=== PATIENT | female | born 1970 | race Caucasian/White ===

== ENCOUNTER 2018-11-22 10:39 | Outpatient (CLI) | payer BC | END 2018-11-22 10:40 | disposition home or self-care (01) | LOC: BICMAMMO 10:39 | PROVIDERS: ATTEND Family Medicine | DX: Z12.31 Encounter for screening mammogram for malignant neoplasm of breast (principal); Z80.3 Family history of malignant neoplasm of breast | CPT/HCPCS: 77063; 77067 ==

== ENCOUNTER 2019-07-04 12:39 | Outpatient (CLI) | payer BC ==
--- NOTE | 2019-07-04 17:32 | MRI ---
MRI Cervical Spine WO Con History: Anika taylor [id number] spondylosis Comparison: Cervical spine radiograph 2014 Findings: Cerebellar tonsils terminate at the level of the foramen magnum. Cord signal appears normal aside from at the artifact from artificial disc at C6/C7 which causes severe distortion artifact. Paraspinal musculature appears be symmetric. No marrow infiltrative process. Levels are as follows: C2/C3: Normal disc. No neural foraminal or spinal canal narrowing. C3/C4: Normal disc. Severe right facet arthropathy. Moderate right neural foraminal narrowing. C4/C5: Normal disc. Moderate asymmetric right uncinate process hypertrophy. Moderate to severe right facet arthrosis. Severe right neural foraminal narrowing. C5/C6: Normal disc. Asymmetric right moderate has a process hypertrophy. Severe right facet arthropat hy. Severe right neural foraminal narrowing. C6/C7: Distortion from artificial disc. C7/T1: Normal disc. No neural foraminal or spinal canal narrowing. Impression: Asymmetric moderate to severe right facet arthropathy from C3-C6 and asymmetric right unc inate process hypertrophy causing multilevel level unilateral right neural foraminal narrowing.
== END 2019-07-04 12:40 | disposition home or self-care (01) ==
LOC: SCSMRI 12:39
PROVIDERS: ATTEND Nurse Practitioner Family
DX: M47.812 Spondylosis without myelopathy or radiculopathy, cervical region (principal); M48.02 Spinal stenosis, cervical region
CPT/HCPCS: 72141

== ENCOUNTER 2020-01-30 07:10 | Day surgery (SDC) | payer BC ==
[2020-01-29 16:24] VITALS: BMI 22.7
--- NOTE | 2020-01-30 08:29 | RAD ---
Exam: 5 VIEWS CERVICAL SPINE: HISTORY: Evaluate for cervical spinal foraminal stenosis. COMPARISON: None. FINDINGS: AP, open-mouth, lateral neutral, lateral flexion and lateral extension views are submitted for interp retation On the open-mouth projection, intact odontoid process. Appropriate alignment of the lateral masses of C1 and C2. On the AP projection, multilevel facet arthropathy/hypertrophy. There is a metallic disc prosthesis a t the C6-C7 level. No perihardware lucency. Predental space is normal. Cervical spine vertebral body heights are maintained. No fracture. No sign ificant loss of disc space height. There is no prevertebral soft tissue swelling Spondylolisthesis: C5-C6: 2.3 mm of anterolisthesis in the neutral position, 3.7 mm of anterolisthesis upon flexion, 1.8 mm retrolisthesis upon extension. IMPRESSION: 1. Uncomplicated cervical fusion at C6-C7. 2. Grade 1 anterolisthesis of C5 upon C6 as described above. Transcribed Date/Time: 01/30/2020 9:15 AM
--- NOTE | 2020-01-30 09:06 | RAD ---
Exam: CERVICAL MYELOGRAM: HISTORY: Cervical fusion. Radiculopathy. Evaluate for foraminal stenosis. 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 Lumbar spine vertebral eufemia dy heights are maintained. No fracture. No significant loss of disc space height. No spondylolisthesis or spondylolysis. Surgical clips and suture chain in the left hemiabdomen. Successful lumbar puncture. A total of 9 mL of Isovue-M 300 contrast was administered intrathecally. No immediate or postprocedure complications. Exposure: 181.6 microgray/M2, 1 minute. TECHNIQUE: Consent obtained to perform a lumbar puncture. Lumbar spine is evaluated. The L2-L3 level was deemed appropriate. Skin was prepped and draped in a sterile fashion. 1% lidocaine, buffered with sodium bicarbonate was used for local anesthesia. Under fluoroscopic guidance, a 22-gauge needle was advance d into the CSF space. Small amount of clear CSF was noted. Via a short tubing catheter, a total of 9 mL of Isovue-M 300 contrast was administered intrathecally. Patient tolerated the procedure well. N o immediate or postprocedure complications. IMPRESSION: Successful lumbar puncture for cervical myelogram. Transcribed Date/Time: 01/30/2020 9:18 AM
[2020-01-30] MEDS ORDERED: Iopamidol-M 300 61% 15 ML VIAL ONE (09:14)
--- NOTE | 2020-01-30 09:33 | CT ---
Exam: Post myelogram cervical spine CT HISTORY:Status post cervical fusion. Neck pain. Shoulder pain. Radiculopathy. COMPARISON: None. FINDINGS: No craniocervical dissociation. Appropriate alignment of the lateral masses of C1 and C2. Intact odon toid process. Cervical spine vertebral body heights are maintained. No fracture. There is a right facet hypertrophy at C3, C4, C5, C6 and C7. Predental space is normal. No prevertebral soft tissue swelling. Soft tissue neck structures, upper m ediastinum and lung apices do not demonstrate any acute abnormality. Uncomplicated fusion at C6-C7 C2-C3: No significant central canal stenosis or significant neural foraminal narrowing C3-C4: No significant central canal stenosis or significant neural foraminal narrowing C4-C5:No significant central canal stenosis. Moderate to severe right neural foraminal narrowing due to facet hypertrophy and to a lesser extent uncovertebral hypertrophy. Left neural foramen is patent. C5-C6: No significant central canal stenosis. Moderate to severe right neural foraminal narrowing due to facet hypertrophy and to a lesser extent uncovertebral hypertrophy. Left neural foramen is patent. C6-C7:Disc prosthesis. No significant central canal stenosis. Minimal right neural foraminal narrowin g due to uncovertebral and facet hypertrophy C7-T1: No significant central canal stenosis. Neural foramina are patent IMPRESSION: 1.Uncomplicated cervical fusion at C6-C7. 2. No fracture. 2. Moderate to severe right neural foraminal narrowing at C4-C5 C5-C6 due to facet hypertrophy and to lesser extent uncovertebral hypertrophy. Transcribed Date/Time: 01/30/2020 10:37 AM
[2020-01-30 10:17] VITALS: BP 117/52; TEMP 97.8
== END 2020-01-30 09:50 | disposition home or self-care (01) ==
LOC: RAD 07:10
PROVIDERS: ATTEND Anesthesiology Pain Medicine
PROC: B01B1ZZ Fluoroscopy of Spinal Cord using Low Osmolar Contrast (ICD-10-PCS; principal; 2020-01-30)
DX: M48.02 Spinal stenosis, cervical region (principal); M54.12 Radiculopathy, cervical region; D64.9 Anemia, unspecified; Z87.891 Personal history of nicotine dependence; Z79.899 Other long term (current) drug therapy; Z88.6 Allergy status to analgesic agent; Z98.1 Arthrodesis status
CPT/HCPCS: 62302; 72050; 72126; Q9967

== ENCOUNTER 2020-03-06 09:19 | Outpatient (CLI) | payer BC ==
--- NOTE | 2020-03-06 11:12 | MMO ---
Bilateral MAMMO Bilat Screen [facility]. CLINICAL HISTORY: Patient is 49 years old and is seen for screening. The patient has no family history of breast cancer. The patient has no personal history of cancer. VIEWS: The views performed were: bilateral craniocaudal with tomosynthesis and bilateral mediolateral oblique with tomosynthesis. FILMS COMPARED: The present examination has been compared to prior imaging studies performed at [facility] on 04/25/2015, 05/13/2016, 05/26/2017 and 11/22/2018. This study has been interpreted with the assistance of computer-aided detection. MAMMOGRAM FINDINGS: There are scattered fibroglandular densities. There are no suspicious masses, suspicious calcifications, or new areas of architectural distortion. IMPRESSION: THERE IS NO MAMMOGRAPHIC EVIDENCE OF MALIGNANCY. A ROUTINE FOLLOW-UP MAMMOGRAM IN 1 YEAR IS RECOMMENDED. THE RESULTS OF THIS EXAM WERE SENT TO THE PATIENT. ACR BI-RADS Category 1 - Negative MAMMOGRAPHY NOTE: 1. A negative mammogram report should not delay a biopsy if a dominant of clinically suspicious mass is present. 2. Approximately 10% to 15% of breast cancers are not detected by mammography. 3. Adenosis and dense breasts may obscure an underlying neoplasm. Reported by: CHRISTINE SOTELO MD Electonically Signed: [id number]
== END 2020-03-06 09:20 | disposition home or self-care (01) ==
LOC: BICMAMMO 09:19
PROVIDERS: ATTEND Family Medicine
DX: Z12.31 Encounter for screening mammogram for malignant neoplasm of breast (principal)
CPT/HCPCS: 77063; 77067

== ENCOUNTER 2021-03-11 09:24 | Outpatient (CLI) | payer BC | END 2021-03-11 09:25 | disposition home or self-care (01) | LOC: BICMAMMO 09:24 | PROVIDERS: ATTEND Family Medicine | DX: Z12.31 Encounter for screening mammogram for malignant neoplasm of breast (principal) | CPT/HCPCS: 77063; 77067 ==